=== PATIENT | male | born 1960 | race Caucasian/White ===

== ENCOUNTER 2018-04-06 07:57 | Day surgery (SDC) | payer BC ==
[2018-04-06] MEDS ORDERED: PROPOFOL 20 ML (08:47)
[2018-04-06] MEDS ORDERED: MIDAZOLAM 1 MG/ML 2 ML INJ (08:48)
[2018-04-06] MEDS ORDERED: FENTAnyl 50 MCG/ML VIAL (08:48)
== END 2018-04-06 10:18 | disposition home or self-care (01) ==
LOC: GIL 07:57
DX: Z12.11 Encounter for screening for malignant neoplasm of colon (principal); K64.4 Residual hemorrhoidal skin tags
CPT/HCPCS: 45378